=== PATIENT | male | born 1965 | race Caucasian/White ===

== ENCOUNTER → 2018-03-12 02:52 | Outpatient (CLI) | payer BC, MEDICARE, SELFPAY ==
--- NOTE | 2018-03-12 13:09 | DI.REPORT_ITS ---
SYMPTOM/DIAGNOSIS: PRE MRI CLEARANCE, H/O FRONT SERVICES AGENT, ? FOREIGN BODY, M74.22, CERVICAL SPONDYLOSIS WITH RADICULOPATHY LIMITED ORBITS: Limited views of the orbits were obtained to exclude metallic intra-orbital foreign body pre MRI. No intra-orbital metallic foreign body is seen.
--- NOTE | 2018-03-12 14:00 | DI.REPORT_ITS ---
SYMPTOMS/DIAGNOSIS: CERVICAL RADICULOPATHY, M47.22 CERVICAL SPINE MRI: MRI examination of the cervical spine was performed according to the usual protocol. There is a moderate mid cervical kyphosis. There is prominence of the disc osteophyte complex at the C 3 - 4 level with most prominent findings right paracentral and left lateral. There is mild impingement on the anterior aspect of the spinal cord right paracentral with mild deformity of the cord surface anteriorly. There is left sided neural foraminal narrowing secondary to osteophyte formation. At C 4 - 5 there is broad based prominence of the disc osteophyte complex with bilateral neural foraminal narrowing and mild anterior cord surface deformity. Mild prominence of disc osteophyte complex noted at C 5 - 6 without significant cord deformity. Most prominent findings are left lateral and there is slight left sided neural foraminal narrowing. No significant findings at C 6 - 7 or C 7 - T 1. CONCLUSION: Multi-level prominence of the disc osteophyte complex as described above. Please see the above discussion for findings at individual levels.
== END ==
PROVIDERS: PCP Physician Assistant Medical; Visit Provider Nurse Practitioner Family
DX: M54.12 Radiculopathy, cervical region (principal); M25.78 Osteophyte, vertebrae; M47.22 Other spondylosis with radiculopathy, cervical region; Z13.89 Encounter for screening for other disorder
CPT/HCPCS: 70030; 72141

== ENCOUNTER 2018-07-14 09:58 | Outpatient (CLI) | payer BC, SELFPAY ==
--- NOTE | 2018-07-14 06:00 | DI.RAD_ITS ---
SYMPTOMS/DIAGNOSIS: CERVICAL RADICULOPATHY PAIN CLINIC CERVICAL SPINE, C-ARM FLUOROSCOPY: Fluoroscopy Time: 21.2 seconds/4.89 mGy C-arm fluoroscopy was utilized by Dr. Johnson during reported cervical epidural steroid injection. Hard copies show needle placement with apparent epidural injection in the mid cervical region on the left.
[2018-07-14 10:05] VITALS: BP 120/81; PULSE 78; RESP 20; TEMP 36.5; O2SAT 96
[2018-07-14] MEDS: Midazolam 2 MG/2 ML VIAL IVP (10:26)
[2018-07-14] MEDS: Lactated Ringers 1,000 ML 80 ML IV (10:28)
[2018-07-14 10:36] VITALS: BP 127/80; PULSE 71; RESP 15; O2SAT 99
[2018-07-14] MEDS: Omnipaque 240 MG/ML 50 ML BTL IJ (10:37)
[2018-07-14] MEDS: methylPREDNISolone ACETATE 40 MG/ML VIAL IJ (10:37)
--- NOTE | 2018-07-14 10:51 | PDOC.PAIN ---
Pain Clinic Procedure Note Current Active Problems Problem Status Onset Cervical radiculitis Chronic Cervical Epidural Steroid Injection ABDIRASHID IVERSON has been referred to the [facility] for cervical epidural steroid injection. COMMENTS: Patient has neck and left upper extremity pain with foraminal narrowing on the left at C3-4 and C5-6. Patient was interviewed and the medical record reviewed. There were no medical, pharmacologic, radiographic or other structural contraindications to attempting fluoroscopically guided epidural steroid injection. Risks and expected side effects as well as potential benefit of the procedure were reviewed and voiced concerns addressed. The printed consent form was signed and witnessed. Standard time-out procedure was performed. The patient was placed in the prone position on the fluoroscopy table and automated blood pressure cuff and pulse oximeter applied. The skin entry point for entering the epidural space by a midline C7-T1 interlaminar approach was identified under fluoroscopy and marked. Following thorough Chlorhexadine preparation of the skin and draping and 1% lidocaine infiltration of the skin entry point and subcutaneous tissues, an 17 gauge Tuohy needle was placed under fluoroscopic guidance and with loss of resistance technique into the epidural space. Upon needle placement and loss of resistance there were no paresthesiae or return of blood or CSF through the needle. An Arrow catheter was thread cephalad to the C5 level {left } of midline. 1ml of Omnipaque 240 were injected with clear epidural spread in the A/P, lateral and oblique views. 80mg Depomedrol with 1ml sterile normal saline were injected through the catheter with no unusual discomfort expressed. Vital signs were stable throughout the procedure and were as recorded in the docflowsheet by the nursing staff. If given, dosages of intravenous drugs for anxiolysis and analgesia were documented in MAR. Follow up plans and appointments were discussed. Post procedure instruction was given as documented in nursing documentation and having met discharge criteria and was discharged from the [facility]. COMMENTS: Versed 1 mg given. Patient will follow-up as needed. He gets long lasting relief we can repeat it. Otherwise I will have him follow back up in the office Jessenia Padilla. CC: Julian Mckenzie
== END 2018-07-14 10:18 ==
PROVIDERS: PCP Physician Assistant Medical; Visit Provider Anesthesiology Pain Medicine
DX: M54.12 Radiculopathy, cervical region (principal); G89.29 Other chronic pain
CPT/HCPCS: 62321; 72040; J1030; J2250; Q9967

== ENCOUNTER 2019-06-10 01:16 | Outpatient (CLI) | payer BC, MEDICARE, SELFPAY ==
--- NOTE | 2019-06-10 15:38 | DI.MRI_ITS ---
EXAM: MR CERVICAL SPINE WO CLINICAL HISTORY: NECK PAIN, M54.2. TECHNIQUE: Multiplanar multisequence MRI was performed. COMPARISON: MRI - CERVICAL SPINE WO CONT from 03/12/2018 FINDINGS: Cord signal and marrow signal appear normal. The C2-3 level is unremarkable. At C3-4, there are broad-based disc osteophytes projecting mainly posteriorly, eccentric toward the l eft. There is again noted to be left neural foraminal narrowing and effacement of the anterior CSF s pace. At C4-5, there are broad-based disc osteophytes projecting posteriorly with effacement of the anterio r CSF space. There is mild bilateral neural foraminal narrowing. At C5-6, there are smaller osteophytes slightly eccentric toward the left. There is mild effacement of the CSF space and mild left neural foraminal narrowing. The C7-T1 through T2-3 levels are unremarkable. IMPRESSION: Stable appearance of broad-based disc osteophytes from C3-4 through C5-6. Left neural foraminal narr owing is seen at C3-4. There is bilateral neural foraminal narrowing at C4-5 and mild left neural fo raminal narrowing at C5-6.
== END 2019-06-10 01:36 ==
PROVIDERS: PCP Physician Assistant Medical; Visit Provider Physician Assistant Medical
DX: M54.2 Cervicalgia (principal); M25.78 Osteophyte, vertebrae; M47.812 Spondylosis without myelopathy or radiculopathy, cervical region
CPT/HCPCS: 72141

== ENCOUNTER 2019-06-15 10:03 | Outpatient (REF) | payer BC, MEDICARE, SELFPAY ==
[2019-06-15 16:07] LABS: ALT 37 U/L (16-63); AST 23 U/L (15-37); Albumin 4.4 g/dL (3.4-5.0); Alkaline Phosphatase 64 U/L (46-116); Anion Gap 12.8 mmol/L (3-11); BUN 24 mg/dL (7-18); Bilirubin, Total 0.8 mg/dL (0.2-1.0); CO2 20.2 mmol/L (21.0-32.0); CREATININE 1.26 mg/dL (0.70-1.30); Calcium 9.3 mg/dL (8.5-10.1); Calculated LDL 117 mg/dL; Chloride 107 mmol/L (98-107); Cholesterol 178 mg/dL (<200); Glucose 94 mg/dL (74-106); HDL Cholesterol 34 mg/dL (40-60); Potassium 4.2 mmol/L (3.5-5.1); Sodium 140 mmol/L (136-145); Total Protein 7.2 g/dL (6.4-8.2); Triglyceride 139 mg/dL (<150)
== END 2019-06-15 10:23 ==
LOC: NCHCN 10:03
PROVIDERS: PCP Physician Assistant Medical; Visit Provider Physician Assistant Medical
DX: Z00.00 Encounter for general adult medical examination without abnormal findings (principal); Z13.228 Encounter for screening for other metabolic disorders; Z13.220 Encounter for screening for lipoid disorders
CPT/HCPCS: 80053; 80061

== ENCOUNTER 2021-09-09 16:46 | Outpatient (REF) | payer BC, SELFPAY ==
[2021-09-09 20:09] LABS: Anion Gap 12.8 mmol/L (3-11); BUN 17 mg/dL (7-18); CO2 20.2 mmol/L (21.0-32.0); CREATININE 1.5 mg/dL (0.70-1.30); Calcium 9.1 mg/dL (8.5-10.1); Chloride 107 mmol/L (98-107); Estimated GFR 48.95 (mL/min/1.73m2); Glucose 91 mg/dL (74-106); Potassium 4.1 mmol/L (3.5-5.1); Sodium 140 mmol/L (136-145)
[2021-09-09 20:44] LABS: Calculated LDL 99 mg/dL (<100); Cholesterol 155 mg/dL (<200); HDL Cholesterol 37 mg/dL (40-60); Triglyceride 95 mg/dL (<150)
== END 2021-09-09 16:47 | disposition home or self-care (01) ==
LOC: NCHCN 16:46
PROVIDERS: PCP Physician Assistant Medical; Visit Provider Physician Assistant Medical
DX: Z00.00 Encounter for general adult medical examination without abnormal findings (principal); Z13.228 Encounter for screening for other metabolic disorders; Z13.220 Encounter for screening for lipoid disorders
CPT/HCPCS: 80048; 80061; 87086

== ENCOUNTER 2021-11-04 08:50 | Outpatient (REF) | payer BC, SELFPAY ==
[2021-11-04 13:58] LABS: Anion Gap 8.1 mmol/L (3-11); BUN 19 mg/dL (7-18); CO2 23.9 mmol/L (21.0-32.0); CREATININE 1.4 mg/dL (0.70-1.30); Calcium 9.2 mg/dL (8.5-10.1); Chloride 107 mmol/L (98-107); Estimated GFR 53.01 (mL/min/1.73m2); Glucose 98 mg/dL (74-106); Potassium 4.7 mmol/L (3.5-5.1); Sodium 139 mmol/L (136-145)
== END 2021-11-04 08:51 | disposition home or self-care (01) ==
LOC: NCHCN 08:50
PROVIDERS: PCP Physician Assistant Medical; Visit Provider Physician Assistant Medical
DX: R79.89 Other specified abnormal findings of blood chemistry (principal)
CPT/HCPCS: 80048

== ENCOUNTER 2023-01-06 08:12 | Emergency (ER) | payer BC, SELFPAY ==
[2023-01-06 08:21] VITALS: BP 139/85; PULSE 75; RESP 18; TEMP 36.5; O2SAT 100
--- NOTE | 2023-01-06 08:31 | ED.GENADUL_ITS ---
Discharge Plan Disposition Patient Disposition: Home Discharge Details Clinical Impression: Ureterolithiasis, Hydronephrosis of left kidney Primary Care Provider: Julian Mckenzie ED Provider: Raffy Tran Home Meds and New Rx's Prescriptions: New oxycodone 5 mg tablet 5 mg PO Q8H PRNQty: 3 0RF Continued omeprazole 40 mg capsule,delayed release(DR/EC) 40 mg PO DAILY sumatriptan succinate [Imitrex] 100 MG tablet 100 mg PO ONCE Rx Instructions: Take one tablet at onset headache may repeat in 4 hours PRN aspirin [Aspir-81] 81 MG tablet,delayed release (DR/EC) 81 mg PO DAILY omega-3 fatty acids-fish oil [Fish Oil] 1 EACH capsule 1 ea PO DAILY cyclobenzaprine 10 MG tablet 10 mg PO BID PRN topiramate [Topamax] 25 MG tablet 50 mg PO BID naproxen 500 MG tablet,delayed release (DR/EC) 500 mg PO BID PRN mometasone 45 GM cream 45 gm Topical DAILY PRN acetaminophen [Mapap Extra Strength] 500 MG tablet 1,000 mg PO TID PRN Discharge Instructions Additional Instructions: Please read all of the information that accompanies these instructions. You were seen in the emergency department for your flank pain. You were found to have a small, 3 mm kidney stone just at the level of your bladder on the left. Please schedule an appointment with your primary care provider later this week as needed. Please return to the emergency department if if you develop fever chills cannot eat or drink. For your pain please take medications as follows: 1. Take acetaminophen (Tylenol), 1,000 mg (two 500 mg tabs) every 6 hours 2. Take ibuprofen (Advil), 400 mg every 6 hours. You are also receiving a prescription strength medication to take as needed for additional pain. Please do not drive or drink alcohol while taking this medication. Please take only as needed. Discharge Data Discharge Date/Time-TO BE ENTERED AT DEPARTURE: 01/06/23 11:14 Medical Decision Making This is an uncomfortable appearing normothermic and not tachycardic 57-year-old male with remote right-sided ureterolithiasis now with sudden onset left flank pain concerning for recurrent ureterolithiasis. Patient has also had diarrhea for the past 3 days and also has left lower quadrant tenderness concerning for the possibility of diverticulitis. Given his dysuria and hematuria ureterolithiasis is more likely. No pulsatile masses nor Mccrary Smallwood sign or Gilmore sign to suggest ruptured AAA. No falls to suggest increased risk for splenic injury. No pain out of proportion to suggest necrotizing soft tissue infection. No rash to chest or abdomen to suggest zoster. Will reassess following CT and provide analgesia with fentanyl prior to obtaining creatinine. 9:05 AM Basic metabolic panel with CKD but no superimposed ZANA. Mild anion gap. CBC with no anemia thrombocytopenia nor leukocytosis. Urinalysis with hematuria but nitrite and leuk esterase negative reassuring against UTI. CT scan shows left UVJ stone. Mild left hydro. 10:55 AM Patient no longer in pain. He had no PDMP record so I did give him several days worth of oral opiates and advised against driving and drinking alcohol. I advised he would likely pass a stone on his own. He received a strainer. He has returned indications including fevers inability to tolerate p.o. or worsening pain despite oral analgesia. I advised PCP follow-up as needed. Based on the patient's stone size and location I anticipate that he will do well in empiric trial of expectant outpatient management. HPI General Date/Time Provider Initiated Documentation: 01/06/23 08:29 . HPI Narrative: This is a 57-year-old male with a remote history of ureterolithiasis now in the emergency department in setting of left-sided flank pain that began last night and worsened this morning. Concerning his prior episode of ureterolithiasis he reports that he was able to pass his stone on his own. He has not seen urology and never required lithotripsy. He endorses dysuria and hematuria. He has never had a colonoscopy but has had 2 negative Cologuard's. He has had 3 days of diarrhea. He denies fevers nausea vomiting chest pain shortness of breath. He has not taken any falls on his abdomen. He denies history of diabetes and anticoagulation. He denies fevers. No routine tobacco, ethanol, and illicits. Related Data Home Medications Medication Instructions Recorded Confirmed acetaminophen 500 mg tablet (Mapap 1,000 mg PO TID PRN 01/25/18 07/14/18 Extra Strength) aspirin 81 mg tablet,delayed 81 mg PO DAILY 02/19/18 07/14/18 release (Aspir-) cyclobenzaprine 10 mg tablet 10 mg PO BID PRN 02/19/18 07/14/18 mometasone 0.1 % topical cream 45 gm topical DAILY PRN 02/19/18 07/14/18 naproxen 500 mg tablet,delayed 500 mg PO BID PRN 02/19/18 07/14/18 release omega-3 fatty acids-fish oil 340 1 ea PO DAILY 02/19/18 07/14/18 mg-1,000 mg capsule (Fish Oil) sumatriptan succinate 100 mg 100 mg PO ONCE 02/19/18 07/14/18 tablet (Imitrex) topiramate 25 mg tablet (Topamax) 50 mg PO BID 02/19/18 07/14/18 omeprazole 40 mg capsule,delayed 40 mg PO DAILY 05/14/18 07/14/18 release oxycodone 5 mg tablet 5 mg PO Q8H PRN #3 tabs 01/06/23 Previous Rx's Medication Instructions Recorded oxycodone 5 mg tablet 5 mg PO Q8H PRN #3 tabs 01/06/23 Allergies Allergy/AdvReac Type Severity Reaction Status Date / Time No Known Allergies Allergy Unverified 07/14/18 10:01 General Stated Complaint: FlankPain JOVANI: 3 PFSH All Active Problems (Updated 01/06/23 @ 10:53 by Raffy Tran MD) Ureterolithiasis (Acute) Hydronephrosis of left kidney (Acute) Cervical radiculitis (Chronic) Medical History (Updated 01/06/23 @ 10:53 by Raffy Tran MD) GERD (gastroesophageal reflux disease) History of tobacco use Migraine Neck pain Plantar fasciitis Right shoulder pain Temporomandibular joint (TMJ) pain URI (upper respiratory infection) Social History Smoking/Tobacco Use Status: Former Tobacco Use Smoking risk assessment performed?: Yes Alcohol Intake: current Alcohol Intake frequency: holidays/special occasions only Drug use: Never Substance use type: does not use Do you feel safe in your relationship?: Yes Exam Narrative Exam Narrative: General: Uncomfortable-appearing in no acute distress speaking in complete sentences. Head: Normocephalic, atraumatic. Eye: Pupils equal, round reactive to light. Extraocular eye movements intact. No conjunctival injection. No scleral icterus. Ear, nose, mouth, throat: Grossly normal inspection. Normal voice, handling secretions normally. Neck: Trachea midline. Cardiovascular: Well-perfused distal extremities. Regular rate and rhythm clear lungs bilaterally. Respiratory: Nonlabored respiration. Clear lungs bilaterally. Gastrointestinal: Nondistended abdomen. Minimal left lower quadrant tenderness. No rebound. No guarding. Left CVA tenderness. Musculoskeletal: No edema. Moving all 4 extremities spontaneously. Skin: Normal for age and race, grossly normal temperature and turgor. No acute rash. Neurologic: Alert and appropriate, no apparent acute deficits. Psychiatric: Mood and manner are appropriate. Grooming and personal hygiene are appropriate. Course Vital Signs Vital signs: Vital Signs Temperature 36.5 C 01/06/23 08:21 Pulse 75 01/06/23 08:21 Respiratory Rate 18 01/06/23 08:21 Blood Pressure 139/85 01/06/23 08:21 Pulse Oximetry 100 01/06/23 08:21 Temperature 36.5 C 01/06/23 08:21 Temperature Source Temporal Artery Scan 01/06/23 08:21 Pulse 75 01/06/23 08:21 Respiratory Rate 18 01/06/23 08:21 Respiratory Effort Normal, Non-Labored 01/06/23 08:24 Blood Pressure 139/85 01/06/23 08:21 Blood Pressure Position Supine 01/06/23 08:21 Pulse Oximetry 100 01/06/23 08:21 Oxygen Delivery Method Room Air 01/06/23 08:21 Oxygen Flow Rate 0 01/06/23 08:21 Pain Level 8 01/06/23 08:21
[2023-01-06 08:56] LABS: Abs Immature Grans 0.04 10^3/uL (0.0-0.06); Absolute Basophil Count 0.04 10^3/uL (0.0-0.2); Absolute Eosinophil Count 0.22 10^3/uL (0.0-0.7); Absolute Lymphocyte Count 1.87 10^3/uL (1.2-3.4); Absolute Monocyte Count 0.47 10^3/uL (0.1-0.8); Absolute Neutrophil Count 5.15 10^3/uL (1.2-6.7); Basophils % 0.5; Eosinophils % 2.8; HCT 48.1 % (40.0-50.0); HGB 16.3 g/dL (13.5-17.5); Immature Grans % 0.5; MCHC 33.9 % (32.0-36.0); MCV 91 fL (80-95); MPV 9.8 fL (8.0-11.0); Neutrophils % 66.2; Platelet Count 246 10^3/uL (130-400); RBC 5.26 10^6/uL (4.36-5.78); RDW-SD 44.1 fL; WBC 7.79 10^3/uL (4.4-10.8)
[2023-01-06 09:02] LABS: Anion Gap 14.7 mmol/L (3-11); BUN 24 mg/dL (7-18); CO2 19.3 mmol/L (21.0-32.0); CREATININE 1.5 mg/dL (0.70-1.30); Calcium 9.3 mg/dL (8.5-10.1); Chloride 109 mmol/L (98-107); Estimated GFR 54.64 (mL/min/1.73m2); Glucose 127 mg/dL (74-106); Potassium 3.6 mmol/L (3.5-5.1); Sodium 143 mmol/L (136-145)
[2023-01-06] MEDS: Normal Saline 1,000 ML 1000 ML IV (09:06)
--- NOTE | 2023-01-06 09:12 | NUR.NOTE ---
Nursing Note: Went to give pt pain meds ordered by ED MD. Pt states pain has resolved at this time, does not need meds. MD Tran aware.
--- NOTE | 2023-01-06 09:35 | DI.CT_ITS ---
Exam(s) CT RENAL COLIC WO EXAM: CT RENAL COLIC WO CLINICAL HISTORY: Left flank pain. TECHNIQUE: Imaging Protocol: Axial computed tomography images with coronal and sagittal reformatted images were created and reviewed. COMPARISON: No exams were available for comparison FINDINGS: ABDOMEN: Lung Bases: Normal where visualized. Liver: Normal density. No measurable mass. Gallbladder and biliary tract: Status post cholecystectomy. No significant biliary ductal dilatation . Pancreas: Normal density, no abnormal calcifications or inflammatory process. Spleen: Normal. Kidneys: Normal size, contour and axis.There is a 1-2 mm stone in the lower pole of the right kidney. No hydronephrosis or ureterolithiasis. There is a 3 mm stone at the left UVJ causing mild hydronep hrosis. 1-2 mm nonobstructing stones are seen in the lower pole of the left kidney. No masses seen. Adrenal glands: No mass is seen. Lymph nodes: Within normal limits. Abdominal Aorta: Abdominal portion non-dilated. Atherosclerosis. PELVIS: Bladder:Symmetric distention, no gross wall thickening. Bowel: No obstruction or bowel wall thickening. Appendix is unremarkable. Peritoneal cavity: No ascites, collection or mesenteric inflammatory response. No free air. Reproductive organs: Unremarkable as visualized. Bones: Within normal limits. Soft Tissues: There is a fat containing left inguinal hernia. IMPRESSION: 1. 3 mm left UVJ stone causing mild left hydronephrosis. 2. Bilateral nephrolithiasis. 3. Findings were discussed with Dr. Tran at 10:13 a.m. on 01/06/2023. RADIATION DOSE DELIVERED: 1,029.65mGy.cm Total DLP DATA REPOSITORY: All CT scans at this facility are submitted to the National Radiology Data Registry (NRDR) Dose Index Registry (DIR) with the [employer] (ACR). RADIATION OPTIMIZATION: All CT scans at this facility use at least one of these dose optimization te chniques: automated exposure control; mA and/or kV adjustment per patient size (includes targeted exa ms where dose is matched to clinical indication); or iterative reconstruction.
[2023-01-06 09:52] LABS: Bilirubin Small (Negative); Blood Large (Negative); Clarity Sl Cloudy (Clear); Glucose Negative (Negative); Ketones 15 mg/dL (Negative); Leukocyte Esterase Negative (Negative); Nitrite Negative (Negative); Urobilinogen 0.2 mg/dL (Up to 0.2); pH 5.5 (5-8)
[2023-01-06 10:04] LABS: RBC >50 HPF (0-2)
[2023-01-06 10:05] LABS: C & S Indicated? C&S Done As Ordered
[2023-01-06 10:29] VITALS: BP 135/79; PULSE 92; RESP 20; TEMP 36.4; O2SAT 98
[2023-01-06 11:11] VITALS: BP 128/84; PULSE 71; RESP 18; O2SAT 99
== END 2023-01-06 11:14 | disposition home or self-care (01) ==
PROVIDERS: Emergency Provider Emergency Medicine; PCP Physician Assistant Medical
DX: R10.9 Unspecified abdominal pain (principal); N13.2 Hydronephrosis with renal and ureteral calculous obstruction; Z87.442 Personal history of urinary calculi; Z87.891 Personal history of nicotine dependence; Z79.82 Long term (current) use of aspirin
CPT/HCPCS: 80048; 96361; 96374; 96375; 99285; 74176; 81003; 81015; 85025; 87086; 99284

== ENCOUNTER 2023-08-27 15:10 | Outpatient (REF) | payer BC, SELFPAY | END 2023-08-27 15:11 | disposition home or self-care (01) | LOC: NCHCN 15:10 | PROVIDERS: PCP Physician Assistant Medical; Visit Provider Nurse Practitioner Family | DX: J02.9 Acute pharyngitis, unspecified (principal) | CPT/HCPCS: 87070 ==

== ENCOUNTER 2023-12-08 14:55 | Outpatient (REF) | payer BC, SELFPAY ==
[2023-12-08 20:00] LABS: Hemoglobin A1C 5.6 % (<5.7)
[2023-12-08 20:02] LABS: ALT 43 U/L (16-63); AST 26 U/L (15-37); Alkaline Phosphatase 51 U/L (46-116); Anion Gap 14.7 mmol/L (3-11); BUN 16 mg/dL (7-18); Bilirubin, Total 0.3 mg/dL (0.2-1.0); CO2 18.3 mmol/L (21.0-32.0); CREATININE 1.2 mg/dL (0.70-1.30); Calcium 8.8 mg/dL (8.5-10.1); Calculated LDL 76 mg/dL (<100); Chloride 107 mmol/L (98-107); Cholesterol 174 mg/dL (<200); Estimated GFR 70.98 (mL/min/1.73m2); Glucose 114 mg/dL (74-106); HDL Cholesterol 32 mg/dL (40-60); Sodium 140 mmol/L (136-145); Total Protein 7.6 g/dL (6.4-8.2); Triglyceride 330 mg/dL (<150)
[2023-12-09 18:51] LABS: PSA, Screening 0.9 ng/mL (<=3.5)
== END 2023-12-08 14:56 | disposition home or self-care (01) ==
LOC: NCHCN 14:55
PROVIDERS: PCP Physician Assistant Medical; Visit Provider Physician Assistant Medical
DX: Z00.00 Encounter for general adult medical examination without abnormal findings (principal); Z12.5 Encounter for screening for malignant neoplasm of prostate; Z13.1 Encounter for screening for diabetes mellitus
CPT/HCPCS: 80053; 80061; 84153; 83036

== ENCOUNTER 2024-03-28 18:46 | Outpatient (REF) | payer BC, SELFPAY ==
--- OUTSIDE RECORDS SUMMARY | 2024-03-28 18:48 | XMS_ITS | Referral Summary ---
Author Organization [facility] Address [address] [place] [address] Care Team Providers Care Ice Cream Freezer Name Role Phone Julian Mckenzie PA-C Primary Care Provider + Allergies No known active allergies Medications Medication Sig Dispensed Refills Start Date End Date Status sumatriptan (IMITREX) 50 mg tablet Take 50 mg by mouth once as needed for Migraine. Active Multivitamins with Minerals tablet Take 1 Tab by mouth daily. Active [place]-3 Fatty Acids-Vitamin E (FISH OIL) 1,000 mg capsule Take by mouth. Active aspirin 81 mg EC tablet Take 81 mg by mouth daily. Active cyanocobalamin 500 mcg tablet Take 500 mcg by mouth daily. Active Active Problems Problem Noted Date Diagnosed Date Low back pain radiating to right leg 10/31/2013 Social History Tobacco Use Types Packs/Day Years Used Date Smoking Tobacco: Former Alcohol Use Standard Drinks/Week Comments Yes 0 (1 standard drink = 0.6 oz pur e alcohol) Sex and Gender Information Value Date Recorded Sex Assigned at Not on file Gender Identity Not on file Sexual Orientation Not on file Last Filed Vital Signs Vital Sign Reading Time Taken Comments Blood Pressure 150/80 04/21/2014916 EDT Pulse 84 04/21/2014 09 EDT Temperature 36.2 ??C (97.2 ??F) 04/21/2014 08 EDT Respiratory Rate 16 04/21/2014 0917 EDT Oxygen Saturation - - Inhaled Oxygen Concentration - - Weight 90.7 kg (200 lb) 04/21/2014 08 EDT Height 174 cm (5' 8.5) 04/21/2014 0838 EDT Body Mass Index 29.97 04/21/2014 0838 EDT Plan of Treatment Not on file Care Teams Ice Cream Freezer Relationship Specialty Start Date End Date Julian Mckenzie PA-C [address] [place] [phone] PCP - General 09/21/13
--- OUTSIDE RECORDS SUMMARY | 2024-03-28 18:48 | XMS_ITS | Encounter Summary ---
Author Organization [facility] Address [address] [place] [address] Care Team Providers Care Executive Administrative Assistant Name Role Phone Julian Mckenzie PA-C Primary Care Provider + Reason for Visit * Reason Onset Date Comments New Patient Visit 09/23/2013 Encounter Details Date Type Department Care Team (Late st Contact Info) Description 09/23/2013 Telephone [facility] Neurosurgery - [facility] [address], [place] [phone] Jaime Hernandez MD [address] [facility], [address] [place] [address] New Patient Visit Social History Tobacco Use Types Packs/Day Years Used Date Smoking Tobacco: Never Assessed Sex and Gender Information Value Date Recorded Sex Assigned at Not on file Gender Identity Not on file Sexual Orientation Not on file documented as of this encounter Miscellaneous Notes * Telephone Encounter - Teresa Otero - 09/27/2013 1157 EDT Will discuss with patient at his 's appt to see Dr. Hernandez on 09/28/13. * Telephone Encounter - Charlie Bustos - 09/23/2013 1108 EST Please call Francine to discuss NPV for pt. Advised Francine that pt would likely need new MRI as last one is 1+ yr old. Reason for referral is low back pain. documented in this encounter Plan of Treatment Not on file documented as of this encounter Visit Diagnoses Not on filedocumented in this encounter Care Teams Executive Administrative Assistant Relationship Specialty Start Date End Date Julian Mckenzie PA-C [address] [place] [phone] PCP - General 09/21/13 documented as of this encounter
--- OUTSIDE RECORDS SUMMARY | 2024-03-28 18:48 | XMS_ITS | Encounter Summary ---
Author Organization [facility] Address [address] [place] [address] Care Team Providers Care Goring Cutter Name Role Phone Julian Mckenzie PA-C Primary Care Provider + Encounter Details Date Type Department Care Team (Late st Contact Info) Description 11/01/2013 Results Only Imaging [facility] Neurosurgery - [address] [address] Jaime Hernandez MD [address] [facility], [address] 5 [phone] Social History Tobacco Use Types Packs/Day Years Used Date Smoking Tobacco: Never Assessed Sex and Gender Information Value Date Recorded Sex Assigned at Not on file Gender Identity Not on file Sexual Orientation Not on file documented as of this encounter Plan of Treatment Not on file documented as of this encounter Procedures Procedure Name Priority Date/Time Associated Diagnosis Comments NM BONE SPECT 12/09/2013 14:52 EDT NM INJECTION NO CHARGE 12/09/2013 10:43 EDT documented in this encounter Results * NM BONE SPECT (12/09/2013 14:52 EDT) Anatomical Region Laterality Modality Other 12/09/2013 14:5 2 EDT 12/09/2013 17:45 EDT Narrative 12/09/2013 17:45 EDT NM BONE SPECT ??12/09/2013 2:52 PM Signs and Symptoms/Comments: ?? 724.1-Sudiukk-SVT-9-CM; low back pain Comparison: CT lumbar spine dated 12/09/2013 Technique: Kwb-bfp-okd-half hours after the IV injection of 17.2 mCi Tc-99m MDP, planar and SPECT/CT images were obtained of the lumbar spine. Findings: ?? Planar and SPECT/CT images are normal. ??Low-dose attenuation correction CT demonstrates prior cholecystectomy. Diffuse hypoattenuation of the liver is consistent with fatty infiltration. Mild atherosclerotic calcifications involve the abdominal aorta. Impression: No abnormal uptake involving the lumbar spine. I have personally reviewed the images and the above interpretation and agree with the findings. Procedure Note 12/09/2013 NM BONE SPECT 12/09/2013 2:52 PM Signs and Symptoms/Comments: 724.3-Adktpat-ZEC-9-CM; low back pain Comparison: CT lumbar spine dated 12/09/2013 Technique: Mxg-eqm-jbq-half hours after the IV injection of 17.2 mCi Tc-99m MDP, planar and SPECT/CT images were obtained of the lumbar spine. Findings: Planar and SPECT/CT images are normal. Low-dose attenuation correction CT demonstrates prior cholecystectomy. Diffuse hypoattenuation of the liver is consistent with fatty infiltration. Mild atherosclerotic calcifications involve the abdominal aorta. Impression: No abnormal uptake involving the lumbar spine. I have personally reviewed the images and the above interpretation and agree with the findings. Jaime GONZALEZ NM ORDERABLES * NM INJECTION NO CHARGE (12/09/2013 10:43 EDT) Anatomical Region Laterality Modality Other 12/09/2013 10:4 3 EDT Narrative 12/09/2013 10:43 EDT Non Reportable Exam Procedure Note 12/09/2013 Non Reportable Exam Jaime GONZALEZ NM ORDERABLES documented in this encounter Visit Diagnoses Not on filedocumented in this encounter Care Teams Goring Cutter Relationship Specialty Start Date End Date Julian Mckenzie PA-C [address] [place] [phone] PCP - General 09/21/13 documented as of this encounter
--- OUTSIDE RECORDS SUMMARY | 2024-03-28 18:48 | XMS_ITS | Encounter Summary ---
Author Organization [facility] [place] [address] Care Team Providers Care Welder Explosion Name Role Phone Julian Mckenzie Primary Care Provider [phone]- [phone] Encounter Details Date Type Department Care Team (Late st Contact Info) Description 12/17/2012 Orders [place] [phone] Augie Parham PA [facility] [place] [address] Social History Tobacco Use Types Packs/Day Years Used Date Smoking Tobacco: Never Assessed Sex and Gender Information Value Date Recorded Sex Assigned at Not on file Gender Identity Not on file Sexual Orientation Not on file documented as of this encounter Plan of Treatment Pending Results Name Type Priority Associated Diagnoses Date /Time Film Library- Storage only MR Spine Imaging Routine 12/17/2012 7:48 AM EDT documented as of this encounter Visit Diagnoses Not on filedocumented in this encounter Care Teams Welder Explosion Relationship Specialty Start Date End Date Julian Mckenzie PA [address] [place] [address] PCP - General 01/28/13 03/06/20 documented as of this encounter
--- OUTSIDE RECORDS SUMMARY | 2024-03-28 18:48 | XMS_ITS | Clinical Summary ---
Author Organization [facility] [place] [address] Care Team Providers Care Vinyl Dipper Name Role Phone Unknown Primary Care Provider Unavailabl e Allergies No known active allergies Medications No known medications Active Problems No known active problems Social History Tobacco Use Types Packs/Day Years Used Date Smoking Tobacco: Former Sex and Gender Information Value Date Recorded Sex Assigned at Not on file Gender Identity Not on file Sexual Orientation Not on file Last Filed Vital Signs Vital Sign Reading Time Taken Comments Blood Pressure 122/72 01/28/2013 10:03 AM EDT Pulse 72 01/28/2013 10:03 AM EDT Temperature - - Respiratory Rate - - Oxygen Saturation - - Inhaled Oxygen Concentration - - Weight 103.4 kg (228 lb) 01/28/2013 10:03 AM EDT Height 172.7 cm (5' 8) 01/28/2013 10:03 AM EDT Body Mass Index 34.67 01/28/2013 10:03 AM EDT Plan of Treatment Health Maintenance Due Date Last Done Comments CT Colonography 1967 Colonoscopy 1965 Colorectal Cancer Screening 1965 FIT DNA 1967 FIT 1965 Sigmoidoscopy (10 year) with FIT yearly 1965 Sigmoidoscopy 1965 HIV screen 11/26/1985 Hepatitis C Screening 11/26/1985 Lipid Screening 11/26/1985 Hepatitis B vaccine (0-59 yrs) (1) 11/26/1986 Tdap adult 11/26/1986 Tetanus vaccine 11/26/1986 Zoster vaccine (1 of 2) 11/26/2017 Advance Directive 11/26/2022 Covid-19 Vaccine ( - 2022-24 season) 2024 Influenza (Flu) vaccine (1 o f 1 - Influenza standard series) 03/20/2024 Care Teams Vinyl Dipper Relationship Specialty Start Date End Date Unknown None PCP - General 03/07/20
--- OUTSIDE RECORDS SUMMARY | 2024-03-28 18:48 | XMS_ITS | Encounter Summary ---
Author Organization [facility] Address [address] [place] [address] Care Team Providers Care Commissioning Editor Name Role Phone Julian Mckenzie PA-C Primary Care Provider + Encounter Details Date Type Department Care Team (Late st Contact Info) Description 12/09/2013 10:10 EDT - 12/09/2013 23:59 EDT Hospital Encounter [facility] [place] [address] [place] [address] Jaime Hernandez MD [address] [facility], [address] [place] [phone] Discharge Disposition: Home or Self Care Social History Tobacco Use Types Packs/Day Years Used Date Smoking Tobacco: Never Assessed Sex and Gender Information Value Date Recorded Sex Assigned at Not on file Gender Identity Not on file Sexual Orientation Not on file documented as of this encounter Discharge Diagnoses Diagnosis V72.5 RADIOLOGICAL EXAM NEC[ICD-9-CM] documented in this encounter Medications at Time of Discharge Medication Sig Dispensed Refills Start Date End Date sumatriptan (IMITREX) 50 mg tablet Take 50 mg by mouth once as needed for Migraine. documented as of this encounter Discharge Disposition Disposition Code Departure Means Destination Home or Self Snf documented in this encounter Plan of Treatment Not on file documented as of this encounter Visit Diagnoses Not on filedocumented in this encounter Care Teams Commissioning Editor Relationship Specialty Start Date End Date Julian Mckenzie PA-C [address] [place] [phone] PCP - General 09/21/13 documented as of this encounter
--- OUTSIDE RECORDS SUMMARY | 2024-03-28 18:48 | XMS_ITS | Encounter Summary ---
Author Organization [facility] Address [address] [place] [address] Care Team Providers Care Mix Technician Name Role Phone Julian Mckenzie PA-C Primary Care Provider + Reason for Referral * Consult (Routine) - Specialty Report Received Specialty Diagnoses / Procedures Referred By Contmoni lackey Referred To Contact Pain Medicine Diagnoses Low back pain radiating to both legs Anu Soriano PA-C [address] [facility] [address] [place] [phone] [facility] [address] [place], [place] [address] [place] [address] Referral ID Status Reason Start Date Expiration Date Visits Requested Visits Authorized [id number] Specialty Report Received Specialty Services Required 01/17/2014 1 1 Question Answer Reason for Request: bilateral leg pain Comments Bilateral L5 nrb/TFESI. CT spect negative. MRI with mild foraminal narrowing. Reason for Visit * Reason Onset Date Comments Discuss Test Results 01/17/2014 December 09 imag ing Encounter Details Date Type Department Care Team (Late st Contact Info) Description 01/17/2014 Telephone [facility] Neurosurgery - [facility] [address] [place] [address] Jaime Hernandez MD [address] [facility], [address] [place] [phone] Discuss Test Results (December 09 imaging) Social History Tobacco Use Types Packs/Day Years Used Date Smoking Tobacco: Never Assessed Sex and Gender Information Value Date Recorded Sex Assigned at Not on file Gender Identity Not on file Sexual Orientation Not on file documented as of this encounter Miscellaneous Notes * Telephone Encounter - Anu Tavares PA-C - 01/17/2014 1614 EDT Spoke with Adalid, he would like a referral to [facility] pain clinic for bilateral L5 NRB. * Telephone Encounter - Anu Tavares PA-C - 01/17/2014 1230 EDT The scan was completely normal; no areas of increased uptake within the spine or joints. There is no surgical solution to his pain. We would recommend a pain clinic approach, beginning with L5 nerve root blocks to determine how much of his pain is related to nerves vs mechanical generators. If he wishes to proceed along those lines, we can complete the referral. * Telephone Encounter - Cindy Daily V. - 01/17/2014 1106 EDT Patient calling for December 09 imaging results documented in this encounter Plan of Treatment Scheduled Referrals Name Type Priority Associated Diagnoses Order Schedule AMB CONS/FOLLOW UP PAIN INTERVENTIONAL Outpatient Referral Routine Low back pain radiating to both legs Ordered: 01/17/2014 documented as of this encounter Visit Diagnoses Diagnosis Low back pain radiating to both legs- Primary Lumbago documented in this encounter Care Teams Mix Technician Relationship Specialty Start Date End Date Julian Mckenzie PA-C [address] [place] [address] PCP - General 09/21/13 documented as of this encounter
--- OUTSIDE RECORDS SUMMARY | 2024-03-28 18:48 | XMS_ITS | Encounter Summary ---
Author Organization [facility] Address [address] [place] [address] Care Team Providers Care Painter Chassis Name Role Phone Julian Mckenzie PA-C Primary Care Provider + Reason for Visit * Reason Comments Back Pain right sided low back pain Leg Pain right leg pain * Consult (Routine) - Specialty Report Received Specialty Diagnoses / Procedures [facility] Referred To Contact Pain Medicine Diagnoses Low back pain radiating to both legs Anu Soriano PA-C [address] [facility] [address] [place] [address] [facility] [address] [place] [address] Referral ID Status Reason Start Date Expiration Date Visits Requested Visits Authorized [id number] Specialty Report Received Specialty Services Required 01/17/2014 1 1 Encounter Details Date Type Department Care Team (Late st Contact Info) Description 04/21/2014 9:00 EDT Office Visit [facility] Interventional Pain [address] [place] [address] Unknown, Holly, Makenna Barrera MD [address] [facility] [address] [place] [address] Justin Gandara, [address] [place] [address] Degeneration of lumbar or lumbosacral intervertebral disc (Primary Dx); Lumbosacral spondylosis without myelopathy; Spinal stenosis, lumbar region, without neurogenic claudication Social History Tobacco Use Types Packs/Day Years Used Date Smoking Tobacco: Former Alcohol Use Standard Drinks/Week Comments Yes 0 (1 standard drink = 0.6 oz pur e alcohol) Sex and Gender Information Value Date Recorded Sex Assigned at Not on file Gender Identity Not on file Sexual Orientation Not on file documented as of this encounter Last Filed Vital Signs Vital Sign Reading Time Taken Comments Blood Pressure 150/80 04/21/2014916 EDT Pulse 84 04/21/2014916 EDT Temperature 36.2 ??C (97.2 ??F) 04/21/2014837 EDT Respiratory Rate 16 04/21/2014916 EDT Oxygen Saturation - - Inhaled Oxygen Concentration - - Weight 90.7 kg (200 lb) 04/21/2014837 EDT Height 174 cm (5' 8.5) 04/21/2014 08 EDT Body Mass Index 29.97 04/21/2014 0838 EDT documented in this encounter Discharge Diagnoses Diagnosis 721.3 LUMBOSACRAL SPONDYLOSIS[ICD-9-CM] 722.52 LUMB/LUMBOSAC DISC DEGEN[ICD-9-CM] 724.02 SPINAL STENOSIS-LUMBAR REGIION W/O NEUROGENIC CLAUDICATION[ICD-9-CM] documented in this encounter Patient Instructions * Patient Instructions* Reese Joradn RN - 04/21/2014 9:18 EDT [facility] [address] [address] Patient Instructions You have had your right lumbar Transforaminal Epidural Steroid Injection. The purpose of this procedure has been to place medication which may help relieve your pain. Steroid may be used to decrease the swelling and nerve irritation which may be causing your pain. The following information should help you over the next few days regarding what you may expect. Please take it easy for the rest of today. DO NOT drive a car for the remainder of the day. If you feel sore where the needle(s) entered for the block or develop a flare-up of pain over the next few days, please use ice on the area. You may leave the ice on for up to 20 minutes at a time. Do not use heat, as this may cause swelling. As long as your primary doctor has indicated no restrictions, you may take a mild pain medicine, such as acetaminophen (Tylenol), ibuprofen (Advil, Nuprin, Motrin IB, etc.) or aspirin, if needed. The steroid injection usually takes a few days to become effective. On average, you may notice somerelief in 3 -5 days. However, it may take up to 10 - 14 days to know whether the injection was helpful. If the block causes numbness/weakness, it should wear off within a few hours. If the area that the needle(s) were inserted becomes hot, red, swollen, or increasingly tender, or if you develop a fever (100.5 or greater) or chills along with these symptoms, please call our office immediately. If you develop increasingly severe neck/back pain, continued numbness or weakness of the arms/legs or changes in your bladder or bowel functions, please call our office at once. Instructions for follow-up Patient Education Topic: Method: Handout and Verbal Taught to: Patient Barriers: None Outcomes: verbalized understanding Signature:REESE JORDAN RN If you have any questions about your block, please call documented in this encounter Progress Notes * Justin Gandara, - 04/21/2014 0941 EDT Patient Name: Adalid Moreno : 1965 Date of Service: 04/21/2014 Retail District Manager: Makenna Barrera MD Renal Dietitian: Justin Gandara DO Procedure: Transforaminal epidural steroid injection at the right L5-S1 foramen Interval History: Mr. Moreno presents at the request of Anu Tavares for evaluation and treatment of his chronic low back and leg pain. Patient was last seen by Dr. Hernandez on 10/31/13 and referred for a possible LTFESI. Please refer to his note for details regarding his presentation and workup.Briefly, patient reports >20 years of low back pain radiating down his right buttock, thigh, post erior/medial calf and medial/posterior foot. He has attempted PT, oral analgesics, both of which have not been beneficial according to the patient. Sitting and standing for long periods of time worsen his pain. Patient states that he underwent an JOVANI without fluoro 20 years ago with no benefit. Bone SPECT 12/09/13 Impression: No abnormal uptake involving the lumbar spine. Lumbar CT 12/09/13 Impression: 1. Minimal degenerative type changes with no lesion causing significant neurocompression. 2. Vascular Calcification consistent with atherosclerosis. ROS: Negative for any fever, chills, nausea/vomiting, headaches, chest pain, palpitations, shortness of breath, bladder/bowel incontinence. No easy bruising, bleeding, anti-coagulation or known recent infections. Physical Exam: Vital signs: BP 150/80 Pulse 84 Temp(Src) 36.2 ??C (97.2 ??F) (Tympanic) Resp 16 Ht 174 cm (68.5) Wt 90.719 kg (200 lb) BMI 29.96 kg/m2 Patient is alert, oriented x 3 and conversant. Able to stand and ambulate with mild difficulty. Gait is antalgic Lumbar spine is mildly tender to palpation. SLT negative bilaterally Examination of the lower extremities reveal normal strength. No gross sensory deficits to light touch. Assessment: 1. Degeneration of lumbar or lumbosacral intervertebral disc 2. Lumbosacral spondylosis without myelopathy 3. Spinal stenosis, lumbar region, without neurogenic claudication Plan: Proceed with transforaminal epidural steroid injection at right L5-S1. Follow up: as needed for routine follow up The patient plans to follow-up with Anu Tavares in the department of Neurosurgery and we will be available for further evaluation and/or injections as necessary. PROCEDURE: The patient gave informed written consent to proceed with this procedure following a detailed discussion of the risks and benefits associated with transforaminal epidural steroid injection in the lumbar spine. Site was marked prior to starting the procedure. The patient was then placed in the prone position, the skin over the lumbosacral area was prepped with chlorhexadine, and the site was draped with sterile towels. Strict sterile technique was maintained throughout the procedure. A turner moment was performed with full staff present to identify the patient, verify the procedure being performed, and review allergies. Fluoroscopy was used to visualize the appropriate neuroforamen. The skin and subcutaneous tissue over this level was anesthetized by infiltration of 2% lidocaine. A 22 gauge 5.0 inch Quincke needle was inserted under fluoroscopic guidance using coaxial technique. The needle was slowly advanced by po sterolateral approach to the superior aspect of the foramen. Fluoroscopic images in the AP and lateral views were taken to confirm final needle tip position in the distal foramen. No parasthesias occurred during needle insertion and aspiration was negative. Contrast dye was injected under live fluoroscopy and revealed good spread along the intended nerve root with no evidence of intravascular or intrathecal uptake. Negative digital subtraction for vascular uptake. After negative aspiration, 80 mg Depo-Medrol and 0.5 ml 0.25% bupivacaine was injected. The needle was then flushed and withdrawn.See nursing MAR for wasted medications The patient tolerated the procedure well, there were no apparent complications, and he was discharged in stable condition. Written and verbal discharge instructions were reviewed with the patient prior to discharge. Attending attestation: The patient was seen and discussed with the resident/fellow. I agree with the findings and plan of care documented in the resident's/fellow's note. In addition, I was present and participating during the entire procedure. Makenna Barrera MD * Angelina Cote - 04/21/2014 0842 EDT [facility] Rooming Note Does patient have a Water Treatment Operator? yes Is patient NPO? (Solids since midnight & liquids for 4 hrs) na Blood Thinners: Is patient on Blood Thinners? no If yes, taking? If stopped, who authorized stopping? Related comments: Infections: Any recent infections, fever of illnesses? cold If on antibiotics, is it 7-10 days past the date of completion of antibiotics? no : (for females of child-bearing age) Is there a chance current ? na Other: documented in this encounter Plan of Treatment Not on file documented as of this encounter Visit Diagnoses Diagnosis Degeneration of lumbar or lumbosacral intervertebral disc- Primary Lumbosacral spondylosis without myelopathy Spinal stenosis, lumbar region, without neurogenic claudication documented in this encounter Administered Medications Inactive Administered Medications - up to 3 most recent administrations Medication Order MAR Action Action Date Dose Rate Site bupivacaine (PF) (MARCAINE) 0.25 % (2.5 mg/mL) injection 1.25 mg 1.25 mg (0.5 mL), neural-axial, NOW X1, 1 dose, On Thu04/21/14 at 0945, Routine Given by Other 04/21/2014 9:20 EDT 1.25 mg methylPREDNISolone ACETATE (DEPO-MEDROL) injection 80 mg 80 mg, neural-axial, NOW X1, 1 dose, On Thu04/21/14 at 0945, Routine Given by Other 04/21/2014 9:20 EDT 80 mg documented in this encounter Historical Medications * This list may reflect changes made after this encounter. Medication Sig Dispensed Refills Start Date End Date cyanocobalamin 500 mcg tablet Take 500 mcg by mouth daily. aspirin 81 mg EC tablet Take 81 mg by mouth daily. [place]-3 Fatty Acids-Vitamin E (FISH OIL) 1,000 mg capsule Take by mouth. Multivitamins with Minerals tablet Take 1 Tab by mouth daily. added in this encounter Care Teams Painter Chassis Relationship Specialty Start Date End Date Julian Mckenzie PA-C [address] [place] [phone] PCP - General 09/21/13 documented as of this encounter
--- OUTSIDE RECORDS SUMMARY | 2024-03-28 18:48 | XMS_ITS | Encounter Summary ---
Author Organization [facility] Address [address] [place] [address] Care Team Providers Care Airport Ramp Agent Name Role Phone Julian Mckenzie PA-C Primary Care Provider + Reason for Visit * Reason Comments Back Pain RLE pain, fall 20 ye ars ago. Encounter Details Date Type Department Care Team (Late st Contact Info) Description 10/31/2013 12:30 EDT Office Visit [facility] Neurosurgery - [facility] [address] [place] [address] Jaime Hernandez MD [address] [facility], [address] [place] [address] Low back pain radiating to right leg (Primary Dx) Social History Tobacco Use Types Packs/Day Years Used Date Smoking Tobacco: Never Assessed Sex and Gender Information Value Date Recorded Sex Assigned at Not on file Gender Identity Not on file Sexual Orientation Not on file documented as of this encounter Last Filed Vital Signs Vital Sign Reading Time Taken Comments Blood Pressure 132/80 10/31/2013 1231 EDT Pulse 70 10/31/2013 1231 EDT Temperature - - Respiratory Rate 16 10/31/2013 1231 EDT Oxygen Saturation - - Inhaled Oxygen Concentration - - Weight 90.7 kg (200 lb) 10/31/2013 1231 EDT Height 172.7 cm (5' 8) 10/31/2013 1231 EDT Body Mass Index 30.41 10/31/2013 1231 EDT documented in this encounter Progress Notes * [employer]ILOR WOMEN'S GARMENT ALTERATION, SCAN 2 - 12/11/2013 0809 EDT * Jaime Hernandez MD - 10/31/2013 1306 EDT Images from the original note were not included. Patient Name: Adalid Moreno : 1965 10/31/[address] Julian Gillis, Attached you will find my formal consultation note regarding Adalid Moreno. Thank you for requesting this consultation. Please do not hesitate to contact me personally if you wish to discuss the evaluation or plan. Sincerely, Jaime Hernandez MD FACS Professor, Neurological Surgery - NEUROSURGERY CONSULTATION NOTE Chief Complaint Patient presents with ??? Back Pain RLE pain, fall 20 years ago. Encounter Diagnoses Name Primary? Low back pain radiating to right leg Yes Requesting Provider: Julian Gillis Primary Provider: ARCADIO Rosas Patient Active Problem List Diagnosis Date Noted ??? Low back pain radiating to right leg 10/31/2013 Priority: Beulah Moreno is a 47-year-old right-handed man who is here for evaluation of central low back painwith radiation to the right leg. I had recently treated his for lumbar disk disease and she had done well. Although this is a longstanding problem for him, he wanted to have a more recent evaluation. His problems started about 20 years ago in November 1993 due to a work-related injury and a fall. He saw multiple providers and was told that he had a disk herniation and a fracture of some type. He said the fracture was at L4-5. He had some injections, which he does not recall being helped by. He eventually went through social security disability. He had a more recent scan on 12/17/2012 as well as x-ray films. He is familiar with the [facility] where his had gotten some treatments, but has not had any recent injections. He describes his pain syndrome as about 70% central low back and 30% right lower extremity to the buttock, posterior thigh with cramping in the calf and the most severe pain in the heel. Sometimes this goes to the big toe on the right, but there is nothing on the left. Pain is mostly worsened by standing. Walking does exacerbate it with slight relief, but it is also brought on by sitting. Pain sca le is 5 to 9/10. There are paresthesias in the leg. Past medical history is significant only for a cholecystectomy around 2008. The PCP notes indicate a history of fatty liver with elevated LFTs, but negative hepatitis panel. Family history was recorded on our intake sheets. Both parents are alive. He has 2 sisters and 1 son. He is here today with his . He has never smoked cigarettes or used tobacco and is a social drinker. 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 Current Outpatient Prescriptions Medication Sig Dispense Refill ??? sumatriptan (IMITREX) 50 mg tablet Take 50 mg by mouth once as needed for Migraine. No current facility-administered medications for this visit. No Known Allergies Review of systems was covered and documented on our intake sheets. OBJECTIVE: He is awake, alert and conversant. He moves about the room without difficulty. He can stand on toes and heels well. His direct strength is intact in the lower extremities proximally and distally. However, he could not flex or extend in the lumbar area more than a few degrees and was markedly tender across the low back. His reflexes were 1+ at the knees and ankles. BP 132/80 Pulse 70 Resp 16 Ht 172.7 cm (68) Wt 90.719 kg (200 lb) BMI 30.42 kg/m2 I reviewed the outside MRI scan with him and kept a copy of the files and gave him the disk back. This scan shows mild facet hypertrophy at L4-5 with possible mild lateral recess stenosis there. All other changes are relatively mild and noncompressive. This is consistent with the reading of the radiologist. IMPRESSION: Mild lumbar stenosis at L4-5 and significant low back pain. I think most of his pain isof mechanical nature and I would direct the workup along those lines. I think that he should have abone scan CT and then a visit to a pain clinic to address any potential targets identified. Nerve root blocks in the L5 root might be helpful in deciding how much of this pain syndrome is related to nerve root impingement. We will keep in touch with him by telephone. Jaime Hernandez MD FACS Professor, Neurological Surgery documented in this encounter Plan of Treatment Not on file documented as of this encounter Procedures Procedure Name Priority Date/Time Associated Diagnosis Comments CT LUMBAR SPINE WO CONTRAST 12/09/2013 14:12 EDT documented in this encounter Results * CT LUMBAR SPINE WO CONTRAST (12/09/2013 14:12 EDT) Anatomical Region Laterality Modality Other 12/09/2013 14:1 2 EDT 12/19/2013 11:32 EDT Narrative 12/19/2013 11:[address] LUMBAR SPINE WO CONTRAST ??12/09/2013 2:12 PM Signs and Symptoms/Comments: 724.1-Xatmdtd-JHF-9-CM; low back pain Axial scans bottom of T11 to the mid sacrum. With coronal and sagittal reconstructions. There is vascular calcification in the aorta consistent with atherosclerotic disease. T11-12 on the uppermost scans show no disc herniation, central or foraminal stenosis. At T12-L1 no disc herniation, central or foraminal stenosis. At L1-L2 no disc herniation, central or foraminal stenosis. At L2-L3 no disc herniation, central or foraminal stenosis. At L3-L4 minimal disc bulge with very mild canal encroachment. No significant appearing central or foraminal stenosis. No disc herniation. At L4-L5 no disc herniation, central or foraminal stenosis. Mild to moderate degenerative facet change. At L5-S1 no disc herniation, central or foraminal stenosis. No more than moderate degenerative facet change. Bone window show no pars defects. No acute fractures. Reconstructions reveal no scoliosis or lateral subluxation on the coronal images. No anterior posterior malalignment. No compression fractures. No severe foraminal stenosis. No gross disc narrowing demonstrated. No other abnormalities. Impression: 1. Minimal degenerative type changes with no lesion causing significant neurocompression. 2. Vascular Calcification consistent with atherosclerosis. Procedure Note 12/19/2013 CT LUMBAR SPINE WO CONTRAST 12/09/2013 2:12 PM Signs and Symptoms/Comments: 724.6-Elqocnj-PXA-9-CM; low back pain Axial scans bottom of T11 to the mid sacrum. With coronal and sagittal reconstructions. There is vascular calcification in the aorta consistent with atherosclerotic disease. T11-12 on the uppermost scans show no disc herniation, central or foraminal stenosis. At T12-L1 no disc herniation, central or foraminal stenosis. At L1-L2 no disc herniation, central or foraminal stenosis. At L2-L3 no disc herniation, central or foraminal stenosis. At L3-L4 minimal disc bulge with very mild canal encroachment. No significant appearing central or foraminal stenosis. No disc herniation. At L4-L5 no disc herniation, central or foraminal stenosis. Mild to moderate degenerative facet change. At L5-S1 no disc herniation, central or foraminal stenosis. No more than moderate degenerative facet change. Bone window show no pars defects. No acute fractures. Reconstructions reveal no scoliosis or lateral subluxation on the coronal images. No anterior posterior malalignment. No compression fractures. No severe foraminal stenosis. No gross disc narrowing demonstrated. No other abnormalities. Impression: 1. Minimal degenerative type changes with no lesion causing significant neurocompression. 2. Vascular Calcification consistent with atherosclerosis. Jaime Hernandez MD IMG CT ORDERABLES documented in this encounter Visit Diagnoses Diagnosis Low back pain radiating to right leg- Primary Lumbago documented in this encounter Historical Medications * This list may reflect changes made after this encounter. Medication Sig Dispensed Refills Start Date End Date sumatriptan (IMITREX) 50 mg tablet Take 50 mg by mouth once as needed for Migraine. added in this encounter Care Teams Airport Ramp Agent Relationship Specialty Start Date End Date Julian Mckenzie PA-C [address] [place] [phone] PCP - General 09/21/13 documented as of this encounter
--- OUTSIDE RECORDS SUMMARY | 2024-03-28 18:48 | XMS_ITS | Encounter Summary ---
Author Organization [facility] [place] [address] Care Team Providers Care Rail Gang Supervisor Name Role Phone Julian Mckenzie Primary Care Provider +1- [phone] Encounter Details Date Type Department Care Team (Late st Contact Info) Description 03/03/2012 Orders [place] [address] Augie Parham PA [facility] [place] [address] Social History Tobacco Use Types Packs/Day Years Used Date Smoking Tobacco: Never Assessed Sex and Gender Information Value Date Recorded Sex Assigned at Not on file Gender Identity Not on file Sexual Orientation Not on file documented as of this encounter Plan of Treatment Pending Results Name Type Priority Associated Diagnoses Date /Time Film Library- Storage only DX Spine Imaging Routine 03/03/2012 7:49 AM EDT documented as of this encounter Visit Diagnoses Not on filedocumented in this encounter Care Teams Rail Gang Supervisor Relationship Specialty Start Date End Date Julian Mckenzie PA [address] [place] [address] PCP - General 01/28/13 03/06/20 documented as of this encounter
--- OUTSIDE RECORDS SUMMARY | 2024-03-28 18:48 | XMS_ITS | Encounter Summary ---
Author Organization [facility] Address [address] [place] [address] Care Team Providers Care Cable Splicer Assistant Name Role Phone Julian Mckenzie PA-C Primary Care Provider + Encounter Details Date Type Department Care Team (Late st Contact Info) Description 12/09/2023 Lab Requisition [facility] Pathology & Laboratory Medicine - [address] [id number] Outr Resulting Lab, Provider Social History Tobacco Use Types Packs/Day Years [...] Procedure Name Priority Date/Time Associated Diagnosis Comments PSA TOTAL, DIAGNOSTIC Routine 12/08/2023 14:00 EDT documented in this encounter Results * PSA TOTAL, DIAGNOSTIC (12/08/2023 14:00 EDT) PSA 0.9 <=3.5 ng/mL 12/09/2023 18:47 EDT [facility] Blood VENOUS BLOOD / Unknown 12/08/2023 14:00 EDT 12/09/2023 17:32 EDT Narrative [facility] - 12/09/2023 18:47 EDT NOTE: Serum PSA concentration should not be interpreted as absolute evidence for the presence or absence of malignant disease. Assayed on Siemens ADVIA Centaur XPT using chemiluminescent technology.??Values obtained by using different assay methods cannot be used interchangeably. Provider Outr Resulting Lab CHEMISTRY & BLOOD GAS ORDERABLES [facility] [address] [place] [address] documented in this encounter Visit Diagnoses Not on filedocumented in this encounter Care Teams Cable Splicer Assistant Relationship Specialty Start Date End Date Julian Mckenzie PA-C [address] [place] [address] PCP - General 09/21/13 documented as of this encounter
--- OUTSIDE RECORDS SUMMARY | 2024-03-28 18:48 | XMS_ITS | Encounter Summary ---
Author Organization [facility] Address [facility] [place] [address] Care Team Providers Care Colorman Name Role Phone Julian Mckenzie Primary Care Provider +1- [phone] Encounter Details Date Type Department Care Team (Late st Contact Info) Description 01/28/2013 Abstract [place] [address] Mariely Long APRN [facility] [place] [address] Social History Tobacco Use Types Packs/Day Years Used Date Smoking Tobacco: Former Sex and Gender Information Value Date Recorded Sex Assigned at Not on file Gender Identity Not on file Sexual Orientation Not on file documented as of this encounter Plan of Treatment Not on file documented as of this encounter Visit Diagnoses Not on filedocumented in this encounter Care Teams Colorman Relationship Specialty Start Date End Date Julian Mckenzie PA [address] [place] [address] PCP - General 01/28/13 03/06/20 documented as of this encounter
--- OUTSIDE RECORDS SUMMARY | 2024-03-28 18:48 | XMS_ITS | Clinical Summary ---
Author Organization [facility] Address [address] [place] [address] Care Team Providers Care Assembler Billiard Table Name Role Phone Julian Mckenzie PA-C Primary Care Provider + Allergies No known active allergies Medications Medication Sig Dispensed Refills Start Date End Date Status sumatriptan (IMITREX) 50 mg tablet Take 50 mg by mouth once as needed for Migraine. Active Multivitamins with Minerals tablet Take 1 Tab by mouth daily. Active [place]-3 Fatty Acids-Vitamin E (FISH OIL) 1,000 mg capsule Take by mouth. Active aspirin 81 mg EC tablet Take 81 mg by mouth daily. Active cyanocobalamin 500 mcg tablet Take 500 mcg by mouth daily. Active Active Problems Problem Noted Date Diagnosed Date Low back pain radiating to right leg 10/31/2013 Surgical History Surgery Date Site/Laterality Comments CHOLECYSTECTOMY CARPAL TUNNEL RELEASE Social History Tobacco Use Types Packs/Day Years Used Date Smoking Tobacco: Former Alcohol Use Standard Drinks/Week Comments Yes 0 (1 standard drink = 0.6 oz pur e alcohol) Sex and Gender Information Value Date Recorded Sex Assigned at Not on file Gender Identity Not on file Sexual Orientation Not on file Obstetrics History Last Filed Vital Signs Vital Sign Reading Time Taken Comments Blood Pressure 150/80 04/21/201417 EDT Pulse 84 04/21/2014 09 EDT Temperature 36.2 ??C (97.2 ??F) 04/21/2014 08 EDT Respiratory Rate 16 04/21/2014 0917 EDT Oxygen Saturation - - Inhaled Oxygen Concentration - - Weight 90.7 kg (200 lb) 04/21/2014 08 EDT Height 174 cm (5' 8.5) 04/21/2014 0838 EDT Body Mass Index 29.97 04/21/2014 0838 EDT Plan of Treatment Health Maintenance Due Date Last Done Comments Hepatitis C Screen 1965 Hepatitis B Vaccine (1 of 3 - 19+ 3-dose series) 11/26 COVID-19 Vaccine (2022- season) 2023 Care Teams Assembler Billiard Table Relationship Specialty Start Date End Date Julian Mckenzie PA-C [address] [place] [phone] PCP - General 09/21/13
--- OUTSIDE RECORDS SUMMARY | 2024-03-28 18:48 | XMS_ITS | Encounter Summary ---
Author Organization [facility] Address [address] [place] [address] Care Team Providers Care Sand Worker Name Role Phone Julian Mckenzie PA-C Primary Care Provider + Reason for Visit * Reason Onset Date Comments Appointment Related 11/01/2013 Encounter Details Date Type Department Care Team (Late st Contact Info) Description 11/01/2013 Telephone [facility] Neurosurgery - [facility] [address], [place] [phone] Jaime Hernandez MD [address] [facility], [address] [place] [address] Appointment Related Social History Tobacco Use Types Packs/Day Years Used Date Smoking Tobacco: Never Assessed Sex and Gender Information Value Date Recorded Sex Assigned at Not on file Gender Identity Not on file Sexual Orientation Not on file documented as of this encounter Miscellaneous Notes * Telephone Encounter - Teresa Otero - 11/01/2013 1255 EDT Left message on patient's home answering machine with date/time of CT SPECT. Scheduled for 12/09/13, check in 10:30 am for 11am inj, scans at 1:45 pm. Informed and apologized to the patient that there were no openings for this week to get this done. documented in this encounter Plan of Treatment Not on file documented as of this encounter Visit Diagnoses Not on filedocumented in this encounter Care Teams Sand Worker Relationship Specialty Start Date End Date Julian Mckenzie PA-C [address] [place] [address] PCP - General 09/21/13 documented as of this encounter
--- OUTSIDE RECORDS SUMMARY | 2024-03-28 18:48 | XMS_ITS | Encounter Summary ---
Author Organization [facility] Address [address] [place] [address] Care Team Providers Care Puttier Name Role Phone Julian Mckenzie PA-C Primary Care Provider + Reason for Visit * Reason Onset Date Comments Appointment Related 02/21/2014 nerve block Appointment Related 02/22/2014 nerve block Encounter Details Date Type Department Care Team (Late st Contact Info) Description 02/21/2014 Telephone [facility] Neurosurgery - [facility] [address] [place], [place] [phone] Jaime Hernandez MD [address] [facility], [address] [place] [address] Appointment Related (nerve block); Appointment Related (nerve block) Social History Tobacco Use Types Packs/Day Years Used Date Smoking Tobacco: Never Assessed Sex and Gender Information Value Date Recorded Sex Assigned at Not on file Gender Identity Not on file Sexual Orientation Not on file documented as of this encounter Miscellaneous Notes * Telephone Encounter - Tisha Chandler - 02/22/2014 1240 EDT Per pt he has not heard back about nerve block referral. Per pt he has been waiting since October or November. * Telephone Encounter - Kaitlynn Wild - 02/21/2014 0921 EDT Pt states he has still not been scheduled for nerve block appt. Please call. documented in this encounter Plan of Treatment Not on file documented as of this encounter Visit Diagnoses Not on filedocumented in this encounter Care Teams Puttier Relationship Specialty Start Date End Date Julian Mckenzie PA-C [address] [place] [phone] PCP - General 09/21/13 documented as of this encounter
--- OUTSIDE RECORDS SUMMARY | 2024-03-28 18:48 | XMS_ITS | Encounter Summary ---
Author Organization [facility] Address [address] [place] [address] Care Team Providers Care Dough Mixer Helper Name Role Phone Unknown, Provider Primary Care Provider [phone] Encounter Details Date Type Department Care Team (Late st Contact Info) Description 09/26/2009 Results Only [facility]- [facility] [phone] Shawanda Khanna MD [address] [place] [address] Social History Tobacco Use Types Packs/Day Years Used Date Smoking Tobacco: Never Assessed Sex and Gender Information Value Date Recorded Sex Assigned at Not on file Gender Identity Not on file Sexual Orientation Not on file documented as of this encounter Plan of Treatment Not on file documented as of this encounter Procedures Procedure Name Priority Date/Time Associated Diagnosis Comments SURGICAL PATHOLOGY Routine 09/26/2009 0:00 EST documented in this encounter Results * SURGICAL PATHOLOGY (09/26/2009 0:00 EST) Pathology Report: SURGICAL PATHOLOGY REPORT ? Reports generated via electronic interface contain original data; ? however they are lacking the format of the original report. ? Caution should be taken when reading/interpreti ng unformatted reports. ? Name: ? ZAYRA, ADALID ? Accession #: ? [id number] ? : ? 1965 (Age: 43) ??M ? Collect Date: ? 09/26/2009 ? Location: ? [facility] ? Receive Date: ? 09/27/2009 ? Provider: SHAWANDA KHANNA MD ? Copy to: ROB AGOSTO MD ? Final Pathologic Diagnosis: ? Gallbladder, cholecystectomy: ? - Chronic cholecystitis. ??See comment. ? Comment: ? The clinical history lists the diagnosis as gallstone pancreatitis, ? however, no choleliths are present within the specimen or specimen container. ?? Correlation with preoperative imaging and clinical impression is recommended. ?? (Dr. Archer)/mpl ? Document reviewed and electronically signed by: ? Lc Bah MD ? Report ??Date: 10/01/2009 11:34 ? By the signature above, the attending physician certifies that he/she has ? personally conducted a gross and/or microscopic examination of the described ? specimens and rendered or confirmed the above diagnosis. ? Specimen(s) Received: ? Gallbladder ? Clinical History: ? Gallstone pancreatitis ? Gross Description: ? Received in formalin labelled Zayra, Adalid and gallbladder is an ? intact, previously focally incised gallbladder measuring 6.5 cm in length and ?? 3.3 cm in diameter with a 1.2 cm attached cystic duct. ??The cystic duct margin ?? is inked black. ??There are no choleliths present. ??The mucosa is velvety, ? sherwood-green, and bile-stained. ??The wall thickness is 0.3 cm. ??The serosa is ? smooth, sherwood to green, and bile-stained. ??Corrosion Control Specialist sections are submitted ?? as follows: cystic duct margin en face, one section of upper gallbladder, and ?? one section of lower gallbladder submitted in one cassette. ??/[facility] ? End of Report ? [facility] 09/26/2009 09/27/2009 7:5 3 EST Shawanda Khanna MD PATHOLOGY ORDERABLES [facility] [address] [place] [address] documented in this encounter Visit Diagnoses Not on filedocumented in this encounter Care Teams Dough Mixer Helper Relationship Specialty Start Date End Date Unknown, Provider, PCP - General 09/27/09 09/20/13 documented as of this encounter
--- OUTSIDE RECORDS SUMMARY | 2024-03-28 18:48 | XMS_ITS | Encounter Summary ---
Author Organization [facility] [place] [address] Care Team Providers Care Compression Molding Machine Setter Name Role Phone Julian Mckenzie Primary Care Provider +1- [phone] Encounter Details Date Type Department Care Team (Late st Contact Info) Description 06/10/2019 Ancillary Procedure Radiology [address] [place] [phone] Carline Hernández MD [address] [place] [address] Social History Tobacco Use Types Packs/Day Years Used Date Smoking Tobacco: Former Sex and Gender Information Value Date Recorded Sex Assigned at Not on file Gender Identity Not on file Sexual Orientation Not on file documented as of this encounter Plan of Treatment Not on file documented as of this encounter Procedures Procedure Name Priority Date/Time Associated Diagnosis Comments FILM LIBRARY STORAGE ONLY MR SPINE Routine 06/10/2019 12:00 AM EST documented in this encounter Results * Film Library- Storage Only MR Spine (06/10/2019 12:00 AM EST) Narrative NICHOLAS STEELE - 06/20/2019 1:07 PM EST This exam is auto-finalizing. It's purpose is for storage only. Carline Hernández MD IMG FILM LIBRARY ORDERABLES [place], [place] documented in this encounter Visit Diagnoses Not on filedocumented in this encounter Care Teams Compression Molding Machine Setter Relationship Specialty Start Date End Date Rathburn, Jeniane L, PA [address] [place] [address] PCP - General 01/28/13 03/06/20 documented as of this encounter
[2024-03-28 20:08] LABS: Abs Immature Grans 0.02 10^3/uL (0.0-0.06); Absolute Basophil Count 0.05 10^3/uL (0.0-0.2); Absolute Eosinophil Count 0.25 10^3/uL (0.0-0.7); Absolute Monocyte Count 0.51 10^3/uL (0.1-0.8); Absolute Neutrophil Count 3.37 10^3/uL (1.2-6.7); Basophils % 0.8 %; Eosinophils % 3.9 %; HCT 44.6 % (40.0-50.0); HGB 14.9 g/dL (13.5-17.5); Immature Grans % 0.3 %; Lymphocytes % 34.4 %; MCH 31.3 pg (27.0-33.0); MCHC 33.4 % (32.0-36.0); MCV 94 fL (80-95); MPV 11.4 fL (8.0-11.0); Neutrophils % 52.6 %; Platelet Count 212 10^3/uL (130-400); RBC 4.76 10^6/uL (4.36-5.78); RDW 12.7 % (11.8-14.1)
[2024-03-28 20:11] LABS: ESR 6 mm/hr (0-20)
[2024-03-28 20:29] LABS: ALT 43 U/L (16-63); AST 27 U/L (15-37); Albumin 4.1 g/dL (3.4-5.0); Alkaline Phosphatase 52 U/L (46-116); Anion Gap 11.1 mmol/L (3-11); BUN 19 mg/dL (7-18); Bilirubin, Total 0.64 mg/dL (0.2-1.0); CO2 19.9 mmol/L (21.0-32.0); CREATININE 1.3 mg/dL (0.70-1.30); Calcium 9.2 mg/dL (8.5-10.1); Chloride 107 mmol/L (98-107); Estimated GFR 64.47 (mL/min/1.73m2); Glucose 87 mg/dL (74-106); Magnesium 2.1 mg/dL (1.8-2.4); Potassium 3.9 mmol/L (3.5-5.1); Sodium 138 mmol/L (136-145); Total Protein 7.3 g/dL (6.4-8.2)
== END 2024-03-28 18:47 | disposition home or self-care (01) ==
LOC: NCHCN 18:46
PROVIDERS: PCP Physician Assistant Medical; Visit Provider Physician Assistant Medical
DX: R19.7 Diarrhea, unspecified (principal)
CPT/HCPCS: 80053; 85652; 83735; 85025

== ENCOUNTER 2024-09-19 18:57 | Outpatient (REF) | payer BC, SELFPAY | END 2024-09-19 18:58 | disposition home or self-care (01) | LOC: NCHCN 18:57 | PROVIDERS: PCP Physician Assistant Medical; Visit Provider Nurse Practitioner Family | DX: J02.9 Acute pharyngitis, unspecified (principal) | CPT/HCPCS: 87070 ==

== ENCOUNTER 2024-09-27 15:58 | Outpatient (REF) | payer BC, SELFPAY ==
[2024-09-27 19:01] LABS: Abs Immature Grans 0.02 10^3/uL (0.0-0.06); Absolute Basophil Count 0.05 10^3/uL (0.0-0.2); Absolute Eosinophil Count 0.26 10^3/uL (0.0-0.7); Absolute Lymphocyte Count 1.83 10^3/uL (1.2-3.4); Absolute Neutrophil Count 4.71 10^3/uL (1.2-6.7); Basophils % 0.7 %; Eosinophils % 3.5 %; HGB 15.6 g/dL (13.5-17.5); Immature Grans % 0.3 %; Lymphocytes % 24.5 %; MCHC 33.9 % (32.0-36.0); MCV 92 fL (80-95); MPV 10.9 fL (8.0-11.0); Platelet Count 244 10^3/uL (130-400); RBC 5.03 10^6/uL (4.36-5.78); RDW 12.6 % (11.8-14.1); RDW-SD 41.6 fL; WBC 7.47 10^3/uL (4.4-10.8)
[2024-09-30 11:15] LABS: EBNA IgG Positive (Negative); EBV Interpretation (See Note); VCA IgG Positive (Negative); VCA IgM Negative (Negative)
== END 2024-09-27 15:59 | disposition home or self-care (01) ==
LOC: NCHCN 15:58
PROVIDERS: PCP Physician Assistant Medical; Visit Provider Family Medicine
DX: J02.9 Acute pharyngitis, unspecified (principal)
CPT/HCPCS: 85025; 86664; 86665

== ENCOUNTER 2025-01-02 18:31 | Outpatient (REF) | payer BC, SELFPAY ==
[2025-01-02 20:29] LABS: ALT 69 U/L (16-63); AST 42 U/L (15-37); Albumin 4.1 g/dL (3.4-5.0); Alkaline Phosphatase 62 U/L (46-116); Anion Gap 13.5 mmol/L (3-11); BUN 15 mg/dL (7-18); Bilirubin, Total 0.4 mg/dL (0.2-1.0); CO2 21.5 mmol/L (21.0-32.0); CREATININE 1.3 mg/dL (0.70-1.30); Calcium 8.8 mg/dL (8.5-10.1); Calculated LDL 62 mg/dL (<100); Chloride 105 mmol/L (98-107); Cholesterol 159 mg/dL (<200); Estimated GFR 64.07 (mL/min/1.73m2); Glucose 194 mg/dL (74-106); HDL Cholesterol 30 mg/dL (>or=40); Potassium 3.5 mmol/L (3.5-5.1); Sodium 140 mmol/L (136-145); Total Protein 7.5 g/dL (6.4-8.2); Triglyceride 335 mg/dL (<150)
[2025-01-02 21:29] LABS: Hemoglobin A1C 5.7 % (<5.7)
[2025-01-03 18:53] LABS: PSA, Screening 0.8 ng/mL (<=3.5)
== END 2025-01-02 18:32 | disposition home or self-care (01) ==
LOC: NCHCN 18:31
PROVIDERS: PCP Physician Assistant Medical; Visit Provider Physician Assistant Medical
DX: Z13.6 Encounter for screening for cardiovascular disorders (principal); Z12.5 Encounter for screening for malignant neoplasm of prostate; Z13.1 Encounter for screening for diabetes mellitus
CPT/HCPCS: 80053; 80061; 84153; 83036

== ENCOUNTER 2025-02-02 00:49 | Outpatient (CLI) | payer BC, SELFPAY ==
--- NOTE | 2025-02-02 | DI.US_ITS ---
Exam(s) US ABDOMEN LIMITED EXAM: US ABDOMEN LIMITED CLINICAL HISTORY: ELEVATED LIVER ENZYMES,R74.8 TECHNIQUE: Ultrasound abdomen performed using standard protocol. COMPARISON: US ABDOMEN ULTRASOUND (P) from 03/23/[address] RENAL COLIC WO from 01/06/2023 FINDINGS: PANCREAS: Normal where visualized. LIVER: There is diffuse increased echogenicity of the liver consistent with fatty infiltration. Hepatopetal flow in the Portal Vein. The liver measures in 19 cm length. No evidence of a hepatic mass. GALLBLADDER:Status post cholecystectomy. BILIARY SYSTEM: Common bile duct measures < 7 mm. No intrahepatic biliary ductal dilation. RIGHT KIDNEY: Kidney is normal in size. No evidence of renal calculi. No evidence of hydronephrosis. No renal mass or cyst identified. ASCITES: None seen. IMPRESSION: Hepatomegaly and hepatic steatosis. DATA REPOSITORY:
--- NOTE | 2025-02-02 | DI.MRI_ITS ---
Exam(s) MR CERVICAL SPINE WO EXAM: MR CERVICAL SPINE WO CLINICAL HISTORY: CHRONIC NECK PAIN,M54.2,OTHER CHRONIC PAIN,G89.29 TECHNIQUE: Multiplanar multisequence MRI of the cervical spine was performed without intravenous contrast. COMPARISON: MR MR CERVICAL SPINE WO from 06/10/2019 FINDINGS: BONES: Vertebral body heights are maintained. Intervertebral disc spaces are normal. There is again seen reversal of the normal cervical lordosis centered at C2-C3 which appears stable. There are endplate osteophytes at C2-3 through C5- C6. Bone marrow signal intensity is within normal limits. CERVICAL CORD: Craniovertebral junction is unremarkable. The cervical cord is normal size and signal intensity. SOFT TISSUES: Unremarkable. C2-3: No disc herniation or bulge is identified. No significant central spinal canal or neural foraminal stenosis. C3-4: There is prominence of the osteophyte disc complex effacing the anterior subarachnoid space. There are degenerative changes seen at the left uncovertebral joints causing moderately severe left neural foraminal stenosis. No significant right neural foraminal stenosis is seen. No significant central spinal canal stenosis is present. C4-5: There is prominence of the osteophyte disc complex causing effacement of the anterior subarachnoid space. There are degenerative changes seen of the uncovertebral joints bilaterally causing [id number] bilateral neural foraminal stenosis. C5-6: There is prominence of the osteophyte disc complex eccentric to the left. There are degenerative changes of the left uncovertebral joint. There is no significant central spinal canal or right neural foraminal stenosis. There is moderate left neural foraminal stenosis. C6-7: No disc herniation or bulge is identified. No significant central spinal canal or neural foraminal stenosis C7-T1: No disc herniation or bulge is identified. No significant central spinal canal or neural foraminal stenosis IMPRESSION: Stable degenerative changes seen in the cervical spine particularly at C3-4 through C5-C6. Left neural foraminal stenosis is seen from C3-4 through C5-C6 and right C4-5 neural foraminal stenosis is present. DATA REPOSITORY:
== END 2025-02-02 01:09 ==
PROVIDERS: PCP Physician Assistant Medical; Visit Provider Physician Assistant Medical
DX: R16.0 Hepatomegaly, not elsewhere classified (principal); K76.0 Fatty (change of) liver, not elsewhere classified; M48.02 Spinal stenosis, cervical region
CPT/HCPCS: 72141; 76705

== ENCOUNTER 2025-05-02 08:49 | Outpatient (CLI) | payer BC, SELFPAY ==
--- NOTE | 2025-05-02 06:00 | DI.RAD_ITS ---
Exam(s) XR PAIN CLINIC CERVICAL SP 2V EXAM: XR PAIN CLINIC CERVICAL SP 2V CLINICAL HISTORY: Dx: Cervical Radiculopathy. TECHNIQUE: Fluoroscopy was provided for the referring physician for guidance with performing pain clinic injection procedure. COMPARISON: No exams were available for comparison FINDINGS: Please see procedure note for details. Fluoro time: 20.2 seconds RADIATION DOSE DELIVERED: Ka,r=2.8 mGy
[2025-05-02 08:36] VITALS: BP 125/83; PULSE 83; RESP 18; TEMP 36.6; O2SAT 98
--- NOTE | 2025-05-02 09:26 | PDOC.PAIN ---
Date of service: 05/02/25 Time of Service: 09:43 Pain Managment Procedure Note Procedure Note Procedure Note: CERVICAL EPIDURAL STEROID INJECTION ? Pre-procedure Diagnosis: M54.12- Radiculopathy, cervical region ? Post-procedure Diagnosis:? The same as above ? Sedation:? ? none ? Medication: Depo-Medrol 80 mg, Omnipaque 1 mL ? Estimated blood loss:? less than 2 ml ? Surgeon:? Gregory Johnson MD Comment: C3-4: There is prominence of the osteophyte disc complex effacing the anterior subarachnoid space. There are degenerative changes seen at the left uncovertebral joints causing moderately severe left neural foraminal stenosis. ? Procedure Detail:? The procedure and potential risks were explained to the patient and informed written consent was obtained. The patient was escorted to the procedure room and placed in the prone position. Pillows were utilized for proper positioning and comfort. Time out was performed in the procedure room with nursing staff confirming the patient's identity, procedure to be performed, allergies, and any blood thinning or anti-platelet medications.? The patient's neck and upper back was prepped with ChloraPrep and draped in a sterile fashion. Sterile technique was maintained throughout the procedure.? Sterile gloves were used, a face mask was worn, and new single dose vials of all medications were used with the top being swabbed with alcohol and given time to dry prior to withdrawal of medication. Lidocaine 1% was used to anesthetize the skin. Using a 25-gauge 1.5 inch needle, 1% lidocaine was instilled into the superficial soft tissue overlying the targeted area to provide local anesthesia. With fluoroscopic guidance, a 17 -gauge Tuohy needle was advanced toward the interlaminar space of C7-T1. The needle was then advance through the ligamentum flavum and into the posterior epidural space using the loss of resistance technique. Correct needle placement was confirmed through review of the AP and contralateral oblique fluoroscopic views. A 19-gauge Arrow catheter was threaded cephalad to the Left C4 Following negative aspiration, 1 ml of Omnipaque 240 contrast was injected which confirmed good flow throughout the epidural space and no evidence of vascular flow or flow into adjacent compartments. Next, following negative aspiration, 1 ml of normal saline and 80mg of Depo-Medrol was injected. The needle and catheter were gently removed intact. The patient tolerated the procedure well and was transported to the recovery area for observation and discharge instructions. Permanent images saved and recorded. Plan:? Follow up PRN. PAIN PRE PROCEDURE 12/27 POST PROCEDURE COMMENT: Coding Conscious Sedation used for procedure: No CPT Codes: Inj Spine C/T w/Imaging - [id number] ([id number] ~G) Additional Codes: Date of Service (35666) Date of service: 05/02/25 Diagnoses: M54.12- Radiculopathy, cervical region
[2025-05-02 09:29] VITALS: PULSE 91; O2SAT 97
[2025-05-02 09:30] VITALS: PULSE 82; O2SAT 97
[2025-05-02] MEDS: methylPREDNISolone ACETATE 40 MG/ML VIAL IJ (09:46)
[2025-05-02] MEDS: Epidural Tray 1 EACH MC (09:46)
[2025-05-02] MEDS: Omnipaque 240 MG/ML 50 ML BTL IJ (09:46)
== END 2025-05-02 08:50 | disposition home or self-care (01) ==
LOC: PC 08:50
PROVIDERS: PCP Physician Assistant Medical; Visit Provider Anesthesiology Pain Medicine
DX: M54.12 Radiculopathy, cervical region (principal); M54.2 Cervicalgia
CPT/HCPCS: 62321; 72040; J1010; Q9967

== ENCOUNTER 2025-07-10 16:16 | Outpatient (REF) | payer BC, SELFPAY ==
[2025-07-10 19:39] LABS: ALT 62 U/L (10-49); AST 45 U/L (<34); Albumin 4.5 g/dL (3.2-5.0); Alkaline Phosphatase 55 U/L (46-116); Anion Gap 11.5 mmol/L (3-11); BUN 19 mg/dL (9-23); Bilirubin, Total 0.7 mg/dL (0.2-1.2); CO2 23.5 mmol/L (20.0-31.0); Calcium 9.7 mg/dL (8.3-10.6); Chloride 110 mmol/L (98-107); Glucose 91 mg/dL (74-106); Potassium 4.2 mmol/L (3.5-5.1); Sodium 145 mmol/L (136-145); Total Protein 7.4 g/dL (5.7-8.2)
[2025-07-10 19:43] LABS: HCT 48.3 % (40.0-50.0); HGB 16.2 g/dL (13.5-17.5); MCH 30.4 pg (27.0-33.0); MCHC 33.5 % (32.0-36.0); MCV 91 fL (80-95); MPV 11.4 fL (8.0-11.0); Platelet Count 213 10^3/uL (130-400); RBC 5.33 10^6/uL (4.36-5.78); RDW 12.1 % (11.8-14.1); RDW-SD 39.7 fL; WBC 8.16 10^3/uL (4.4-10.8)
== END 2025-07-10 16:17 | disposition home or self-care (01) ==
LOC: NCHCN 16:16
PROVIDERS: PCP Physician Assistant Medical; Visit Provider Physician Assistant Medical
DX: R10.A3 Flank pain, bilateral (principal)
CPT/HCPCS: 80053; 85027